=== PATIENT | female | born 1960 | race American Indian/Alaskan Native ===

== ENCOUNTER 2018-06-12 19:16 | Emergency (ER) | payer MEDICAID ==
[2018-06-12] MEDS ORDERED: Sodium Chloride 0.9% 1,000 ML IV STA (20:27)
[2018-06-12 20:43] VITALS: BMI 31.3
--- NOTE | 2018-06-12 21:04 | ED PDOC ---
Arrival/HPI - General Chief Complaint: Abdominal Pain Time Seen by Provider: 06/12/18 19:29 Historian: Patient - History of Present Illness Narrative History of Present Illness (Text): 06/12/18 20:59 58 yo F complains of pressure like pain to the epigastric area that radiates to the upper abdomen. Patient states that the pain initially started in her lower back this AM radiating to the epigastric area. She no longer has back pain, however developed pain to the epigastric area at 4 pm, associated with nausea and 2 episodes of vomiting. Reports taking tylenol without improvement. Otherwise: (-) chest pain, (-) SOB, (-) diarrhea, (-) fever, (-) urinary symptoms, (-) melena, (-) hematochezia. Has history of prior abdominal surgery - tubal ligation. PMD in [place] Past Medical History - Psychiatric Hx Substance Use: No - Anesthesia Hx Anesthesia: No Family/Social History Family/Social History: No Known Family HX Smoking Status: Never Smoked Hx Alcohol Use: No Hx Substance Use: No Allergies/Home Meds Allergies/Adverse Reactions: Allergies aspirin Allergy (Verified 06/12/18 20:27) RASH Review of Systems - Review of Systems Constitutional: absent: Fatigue, Fevers Respiratory: absent: SOB, Cough Cardiovascular: absent: Chest Pain, Palpitations Gastrointestinal: Abdominal Pain, Nausea, Vomiting. absent: Diarrhea Genitourinary Female: absent: Dysuria, Frequency, Hematuria Musculoskeletal: absent: Arthralgias, Back Pain, Neck Pain Skin: absent: Rash, Pruritis, Skin Lesions Neurological: absent: Headache, Dizziness Physical Exam Temperature: Afebrile Blood Pressure: Normal Pulse: Regular Respiratory Rate: Normal Appearance: Positive for: Well-Appearing, Non-Toxic, Comfortable Pain Distress: Mild Mental Status: Positive for: Alert and Oriented X 3 - Systems Exam Head: Present: Atraumatic, Normocephalic Pupils: Present: PERRL Extroacular Muscles: Present: EOMI Conjunctiva: Present: Normal Mouth: Present: Moist Mucous Membranes Neck: Present: Normal Range of Motion Respiratory/Chest: Present: Clear to Auscultation, Good Air Exchange. No: Respiratory Distress, Accessory Muscle Use Cardiovascular: Present: Regular Rate and Rhythm, Normal S1, S2. No: Murmurs Abdomen: Present: Tenderness (+epigastric tenderness). No: Distention, Peritoneal Signs, Rebound, Guarding Back: Present: Normal Inspection. No: CVA Tenderness, Midline Tenderness Upper Extremity: Present: Normal Inspection. No: Cyanosis, Edema Lower Extremity: Present: Normal Inspection. No: Edema Neurological: Present: GCS=15, CN II-XII Intact, Speech Normal, Motor Func Grossly Intact, Normal Sensory Function Skin: Present: Warm, Dry, Normal Color. No: Rashes Psychiatric: Present: Alert, Oriented x 3, Normal Insight, Normal Concentration Medical Decision Making ED Course and Treatment: 06/12/18 21:05 Plan: -- Labs -- IV fluids -- Urinalysis -- EKG -- CXR -- Pepcid / Zofran -- Reassess and disposition -- US ABD EXAM: US - ABDOMINAL COMPLETE Electronically signed on Jun 12, 2018 10:22:26 PM EST by: Khurram Stokes M.D Impression: Increased echogenicity of the liver parenchyma compatible with fatty infiltr ation. Otherwise, unremarkable study. CXR : NAD. EKG : NSR at 75 bpm, acute ST changes. Labs reviewed : trop (-), mildly elevated LFTs. On reevaluation, patient reports improvement of symptoms, denies any abd pain, N/V, chest pain or SOB. On exam, patient remains awake alert and oriented 3 in no acute distress. Advised to follow up with primary care physician in 1-2 days without fail. A dvised to take medication as prescribed. Return to the emergency room at any time for any new or worsening symptoms. Patient states she fully agrees with and understands discharge instructions. States that she agrees with the plan and disposition. Verbalized and repeated discharge instructions and plan. I have given the patient opportunity to ask any additional questions. - RAD Interpretation Radiology Orders: 06/12/18 20:27 CHEST PORTABLE [RAD] Stat ABDOMEN COMPLETE [US] Stat - Medication Orders Current Medication Orders: Sodium Chloride (Sodium Chloride 0.9%) 1,000 mls @ 1,000 mls/hr IV .Q1H STA Stop: 06/12/18 21:26 Discontinued Medications Famotidine (Pepcid) 20 mg IVP STAT STA Stop: 06/12/18 20:28 Ondansetron HCl (Zofran Inj) 4 mg IVP STAT STA Stop: 06/12/18 20:28 - PA / TELEVISION NEWS PHOTOGRAPHER / Resident Statement MD/DO has reviewed & agrees with the documentation as recorded. Disposition/Present on Arrival - Present on Arrival Any Indicators Present on Arrival: No History of DVT/PE: No History of Uncontrolled Diabetes: No Urinary Catheter: No History of Decub. Ulcer: No History Surgical Site Infection Following: None - Disposition Have Diagnosis and Disposition been Completed?: Yes Diagnosis: Abdominal pain, Dyspepsia Disposition: HOME/ ROUTINE Disposition Time: 00:00 Patient Plan: Discharge Condition: IMPROVED Discharge Instructions (ExitCare): Acute Abdomen (Belly Pain), Dyspepsia Additional Instructions: Thank you for letting us take care of you today. You were treated for abdominal pain, dyspepsia. The emergency medical care you received today was directed at your acute symptoms. If you were prescribed any medication, please fill it and take as directed. It may take several days for your symptoms to resolve. Return to the Emergency Department if your symptoms worsen, do not improve, or if you have any other problems. Please contact your doctor in 2 days for re-evaluation and follow up. Bring any paperwork you were given at discharge with you along with any medications you are taking to your follow up visit. Our treatment cannot replace ongoing medical care by a primary care provider (PCP) outside of the emergency department. Thank you for allowing the [facility] team to be part of your care today. If you had an X-Ray : A Radiologist will review the ED reading if any change in treatment is needed we will contact you. Prescriptions: Famotidine [Pepcid] 40 mg PO DAILY #30 tab Referrals: Tammy Garces MD [Primary Care Provider] - Follow up with primary Forms: [employer] ([place]ian), WORK NOTE
[2018-06-12 22:18] LABS: BASO # 0.03 K/mm3 (0.0-2.0); BASO % 0.4 % (0.0-3.0); EOS # 0.2 (0.0-0.7); EOS % 3.4 % (1.5-5.0); GRAN # 3.99 (1.4-6.5); GRAN % 59.8 % (50.0-68.0); HEMOGLOBIN 13.3 g/dL (12.0-16.0); LYMPH # 2.1 (1.2-3.4); MEAN CELL VOLUME 85.6 fl (80.0-105.0); MEAN CORPUSCULAR HEMOGLOBIN 28.7 pg (25.0-35.0); MEAN CORPUSCULAR HGB CONC 33.5 g/dl (31.0-37.0); MEAN PLATELET VOLUME 9.8 fl (7.0-11.0); MONO # 0.4 (0.1-0.6); MONO % 5.4 % (1.0-6.0); RBC 4.64 10^6/uL (3.5-6.1); RED CELL DISTRIBUTION WIDTH 13.9 % (11.5-14.5); WHITE BLOOD COUNT 6.7 10^3/uL (4.5-11.0)
[2018-06-12 22:22] LABS: ALB/GLOB RATIO 1.2 (1.1-1.8); ALBUMIN 4.6 g/dL (3.0-4.8); ALT/SGPT 100 U/L (7-56); AST/SGOT 195 U/L (14-36); BLOOD UREA NITROGEN 13 mg/dL (7-21); CALCIUM 9.6 mg/dL (8.4-10.5); GFR NON-AFRICAN AMERICAN > 60; LIPASE 119 U/L (23-300)
[2018-06-12 22:23] LABS: PARTIAL THROMBOPLASTIN TIME 31.7 Seconds (25.1-36.5); PROTHROMBIN TIME 11.4 SECONDS (9.4-12.5)
[2018-06-12 22:32] LABS: TROPONIN I < 0.01 ng/mL
[2018-06-13 00:07] LABS: URINE BILIRUBIN NEGATIVE (NEGATIVE); URINE BLOOD SMALL (NEGATIVE); URINE GLUCOSE (UA) NEGATIVE (NEGATIVE); URINE LEUKOCYTE ESTERASE NEGATIVE Leu/uL (NEGATIVE); URINE PROTEIN NEGATIVE mg/dL (<30 mg/dL); URINE UROBILINOGEN 0.2 E.U./dL (<1 E.U./dL)
[2018-06-13 00:08] LABS: URINE APPEARANCE CLEAR (CLEAR); URINE COLOR YELLOW (YELLOW)
[2018-06-13 00:22] LABS: URINE EPITHELIAL CELLS 0 - 2 /hpf (0-5); URINE RBC 0 - 2 /hpf (0-2); URINE WBC 0 - 2 /hpf (0-6)
[2018-06-13 00:54] VITALS: BP 142/73; PULSE 72; RESP 18; TEMP 98.3; O2SAT 99
--- NOTE | 2018-06-13 08:52 | RAD ---
Date of service: 06/12/2018 HISTORY: epigastric pain COMPARISON: No prior. FINDINGS: LUNGS: No active pulmonary disease. PLEURA: No significant pleural effusion identified, no pneumothorax apparent. CARDIOVASCULAR: No aortic atherosclerotic calcification present. Normal cardiac size. No pulmonary vascular congestion. OSSEOUS STRUCTURES: No significant abnormalities. VISUALIZED UPPER ABDOMEN: Normal. OTHER FINDINGS: None. IMPRESSION: No active disease.
--- NOTE | 2018-06-13 10:09 | CARD ---
APPROVED REPORT Date of service: 06/12/2018 EKG Measurement Heart [id number] <Conclusion> Normal sinus rhythm Prolonged QT Abnormal ECG
--- NOTE | 2018-06-13 15:46 | US ---
Date of service: 06/12/2018 HISTORY: epigastric pain COMPARISON: None. TECHNIQUE: Sonographic evaluation of the abdomen. FINDINGS: LIVER: Measures 13.46 x 11.08 cm. Increased echogenicity of the liver parenchyma. No mass. No intrahepatic bile duct dilatation. GALLBLADDER: Unremarkable. No gallstones. COMMON BILE DUCT: Measures 7 mm. No stones. No dilatation. PANCREAS: Unremarkable as visualized. No mass. No ductal dilatation. RIGHT KIDNEY: Measures 10.36 x 5.94 x 5.49cm. Normal echogenicity. No calculus, mass, or hydronephrosis. LEFT KIDNEY: Measures 10.06 x 6.26 x 5.94cm. Normal echogenicity. No calculus, mass, or hydronephrosis. SPLEEN: Normal in size and contour. No mass. 8.02 x 3.46 AORTA: No aneurysmal dilatation. IVC: Unremarkable. OTHER FINDINGS: The report concurs with the preliminary [facility] report IMPRESSION: Unremarkable abdominal sonogram.
== END 2018-06-13 00:30 | disposition home or self-care (01) ==
LOC: ED 19:16
DX: R10.13 Epigastric pain (principal)
CPT/HCPCS: 71045; 76700; 80053; 81001; 83690; 83735; 84484; 85025; 85610; 85730; 87086; 93005; 96374; 96375; 99284; J2405; J7030